=== PATIENT | male | born 2000 | race African-American/Black ===

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

== ENCOUNTER 2025-06-01 21:43 | Emergency (ER) | payer OTHER ==
[2025-06-01 22:22] LABS: #Basophils 0.04 10x3/uL (0.0-0.2); #Eosinophils 0.10 10x3/uL (0.0-0.7); #Monocytes 0.61 10x3/uL (0.11-0.59); #Neutrophils 4.55 10x3/uL (1.40-6.50); %Basophils 0.4 % (0.0-1.0); %Eosinophils 1.1 % (0.0-10.0); %Lymphocytes 40.1 % (21.0-51.0); %Monocytes 6.8 % (0.0-10.0); %Neutrophils 50.9 % (42.0-75.0); Hematocrit 36.1 % (42.0-52.0); Hemoglobin 12.1 g/dL (14.0-18.0); Mean Corpuscular Hemoglobin 32.3 pg (27.0-31.0); Mean Corpuscular Volume 96.3 fL (78.0-98.0); Platelet Count 209 10x3/uL (130-400); Red Blood Cell (RBC) Count 3.75 mill/uL (4.70-6.10); White Blood Cell (WBC) Count 8.95 10x3/uL (4.8-10.8)
[2025-06-01 22:37] LABS: Acetaminophen Less than 10 mcg/mL (Less than 10); Salicylate Less than 8.0 mg/dL (Less than 8.0)
[2025-06-01 22:59] LABS: Cocaine Metabolite Screen Negative (Negative); THC/Cannabinoid Screen Negative (Negative); Tricyclic Screen Negative (Negative)
[2025-06-01] MEDS ORDERED: Ondansetron PF 4 MG/2 ML Vial ONE (23:15)
[2025-06-01 23:48] LABS: Chloride 112 mmol/L (98-107); Potassium 3.6 mmol/L (3.5-5.1); Sodium 141 mmol/L (136-145)
[2025-06-01 23:49] LABS: Albumin 3.5 g/dL (3.1-4.5); Calcium 8.3 mg/dL (7.8-10.44); Glucose 112 mg/dL (70-105)
[2025-06-01 23:50] LABS: Globulin 2.3 g/dL (2.4-3.5)
[2025-06-01 23:51] LABS: Anion Gap 11 mmol/L (10-20); Carbon Dioxide 22 mmol/L (22-29)
[2025-06-01 23:52] LABS: Alkaline Phosphatase 45 U/L (40-110); Bilirubin, Total 0.5 mg/dL (0.3-1.2)
[2025-06-01 23:53] LABS: Calc. Creatinine Clearance 0 mL/min (70-130)
[2025-06-01 23:54] LABS: BUN (Urea Nitrogen) 9 mg/dL (8.9-20.6)
[2025-06-01 23:55] LABS: ALT (SGPT) 14 U/L (Less than 45); AST (SGOT) 20 U/L (11-34)
== END 2025-06-02 00:23 ==
LOC: ERS 21:43
DX: T50.901A Poisoning by unspecified drugs, medicaments and biological substances, accidental (unintentional), initial encounter (principal); R55 Syncope and collapse
CPT/HCPCS: 36415; 36416; 51701; 70450; 71045; 80053; 80306; 80307; 83605; 85025; 93005; 95813; 96361; 96374; J2405